=== PATIENT | male | born 1945 | race Caucasian/White ===

== ENCOUNTER 2018-01-11 11:40 | Outpatient (CLI) | payer MEDICARE | END 2018-01-11 11:41 | disposition critical access hospital (66) | LOC: EMS 11:40 | PROVIDERS: ATTEND Surgery | DX: R42 Dizziness and giddiness (principal); R53.1 Weakness | CPT/HCPCS: A0425; A0427 ==

== ENCOUNTER 2018-01-11 12:12 | Emergency (ER) | payer MEDICARE ==
[2018-01-11] MEDS ORDERED: SODIUM CHLORIDE 0.9% 1,000 ML IV ONE (13:01)
[2018-01-11 13:20] LABS: BASOPHILS % (AUTO) 0.4 %; EOSINOPHILS # (AUTO) 0.2 10^3/uL (0.0-0.7); EOSINOPHILS % (AUTO) 1.9 %; HGB - HEMOGLOBIN 13.7 g/dL (14.0-18.0); LYMPHOCYTES # (AUTO) 1.1 10^3/uL (1.5-3.5); LYMPHOCYTES % (AUTO) 12.5 %; MEAN CORPUSCULAR HEMOGLOBIN 32.1 pg (27.0-31.0); MEAN CORPUSCULAR HGB CONC 34.2 g/dL (32.0-36.0); MEAN CORPUSCULAR VOLUME 93.7 fL (80.0-94.0); MEAN PLATELET VOLUME 8.4 fL (7.4-11.4); MONOCYTES # (AUTO) 0.6 10^3/uL (0.0-1.0); MONOCYTES % (AUTO) 6.4 %; NEUTROPHILS # (AUTO) 6.9 10^3/uL (1.5-6.6); NEUTROPHILS % (AUTO) 78.8 %; PLT - PLATELET COUNT 163 10^3/uL (130-450); RED BLOOD COUNT 4.27 10^6/uL (4.70-6.10); WHITE BLOOD COUNT 8.7 x10^3/uL (4.8-10.8)
[2018-01-11 13:24] LABS: CALCIUM 8.3 mg/dL (8.5-10.3); CREATININE 0.9 mg/dL (0.6-1.2)
[2018-01-11] MEDS ORDERED: MECLIZINE 12.5 MG TABLET PO STA (13:36)
--- NOTE | 2018-01-11 13:58 | ED Physician Documentation ---
History of Present Illness - Stated complaint Stated Complaint: DIZZY - Chief complaint Chief Complaint: Neuro - Additonal information Additional information: hx from pt very healthy fit active 72 malewith no major medical problems had a normal annual physical on Sat - no new meds or changes went hiking yesterday s sx was feelign fine this AM went out to mow the lawn and felt dizzy - sounds liek mostly near syncopal rather than vertigionous laid in grass s injury no CP or palp no [place] no focal numbness or weakness no tinnitus thinks he may be dehydrated Review of Systems Constitutional: denies: Fever, Chills Ears: denies: Ear pain Cardiac: denies: Chest pain / pressure, Palpitations Respiratory: denies: Dyspnea GI: denies: Abdominal Pain : denies: Dysuria Neurologic: reports: Near syncope. denies: Headache Endocrine: denies: Easy bruising / bleeding Immunocompromised: denies: Immunocompromised PD PAST MEDICAL HISTORY - Past Medical History Past Medical History: Yes Neuro: None HEENT: None Musculoskeletal: Osteoarthritis - Past Surgical History Past Surgical History: No - Allergies Allergies/Adverse Reactions: Allergies Allergy/AdvReac Type Severity Reaction Status Date / Time No Known Drug Allergies Allergy Verified 01/11/18 13:06 - Social History Does the pt smoke?: No Smoking Status: Never smoker Does the pt drink ETOH?: No Does the pt have substance abuse?: No PD ED PE NORMAL - Vitals Vital signs reviewed: Yes - General General: Alert and oriented X 3, Other (laying still with eyes closed) - HEENT HEENT: PERRL (nystagmus looking right but no vertigo with that) - Neck Neck: Supple, no meningeal sign - Cardiac Cardiac: RRR, No murmur - Respiratory Respiratory: No respiratory distress - Abdomen Abdomen: Soft, Non tender - Derm Derm: Normal color - Extremities Extremities: No deformity - Neuro Neuro: Alert and oriented X 3, 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, No motor deficit, No sensory deficit, Normal speech Eye Opening: Spontaneous Motor: Obeys Commands Verbal: Oriented GCS Score: 15 Results - Vitals Vitals: Vital Signs - 24 hr 01/11/18 01/11/18 01/11/18 12:13 14:06 14:49 Temperature 35.9 C L 36.6 C Heart Rate 82 72 80 Respiratory 18 16 16 Rate Blood Pressure 173/108 H 169/71 H 147/80 H O2 Saturation 97 99 100 Oxygen O2 Source Room air - EKG (time done) 1217 Rate: Rate (enter#) (70) Rhythm: NSR [place]: Normal Intervals: Normal [place] QRS: Normal Ischemia: Normal ST segments - Labs Labs: Laboratory Tests 01/11/18 01/11/18 01/11/18 13:10 13:10 13:10 WBC 8.7 RBC 4.27 L Hgb 13.7 L Hct 40.0 L MCV 93.7 MCH 32.1 H MCHC 34.2 RDW 13.0 Plt Count 163 MPV 8.4 Neut # (Auto) 6.9 H Lymph # (Auto) 1.1 L [place] # (Auto) 0.6 Eos # (Auto) 0.2 Baso # (Auto) 0.0 Absolute Nucleated RBC 0.00 Nucleated RBC % 0.0 Sodium 135 Potassium 3.8 Chloride 101 Carbon Dioxide 26 Anion Gap 8.0 BUN 27 H Creatinine 0.9 Estimated GFR (MDRD) 82 L Glucose 127 H Calcium 8.3 L Troponin I < 0.04 PD MEDICAL DECISION MAKING - ED course ED course: tried meclizine while waiting for labs to results - and pt is now completely better EKG and all labs fine'after meclsine all sx resolved pt able to road test s any sx, rpt VS fine, not orthostatic suspect variant of vertigo plus some dehydration' given otherwise very good health prompt resolution and reassuring work up think safe to dc pt home - to rest for the remainder of the weekend would rec close oupt fup for echo and stress test Departure - Departure Disposition: 01 Home, Self Care Clinical Impression: Near syncope Condition: Good Instructions: ED Near Syncope Unkn Comments: All of your tests came back normal Your symptoms completely resolved with rehydration and meclizine which is a medication used for vertigo / motion Given your baseline good health, the reassuring work up, and the complete resolution of your symptoms in the ER I think it is safe for you to go home for the weekend But I would like you to rest and take it easy for the rest of the weekend. And please follow up with your PMD for a recheck early next week -I would suggest you discuss getting an outpatient stress test and echocardiogram ( ultrasound if your heart) Return to the ER if worse in any way
[2018-01-11 14:49] VITALS: BP 147/80
== END 2018-01-11 15:45 | disposition home or self-care (01) ==
LOC: ED 12:12
DX: R55 Syncope and collapse (principal)
CPT/HCPCS: 36415; 80048; 84484; 85025; 93005; 96360; 99283; 99284; A9270